=== PATIENT | male | born 1980 ===

== ENCOUNTER 2021-06-25 22:59 | Emergency (ER) | payer OTHER ==
[~2021-06-25] VITALS: Ht 172.7 cm; Wt 85.7 kg
[~2021-06-25 22:59] MED LIST: ZANTAC 7575 MG PO
[2021-06-25] MEDS ORDERED: TRIUMEQ TABLET1 EACH (23:30)
== END 2021-06-25 23:57 | disposition home or self-care (01) ==
LOC: ER 22:59
DX: K64.4 Residual hemorrhoidal skin tags (principal)